=== PATIENT | male | born 1965 | race Hispanic/Latino ===

== ENCOUNTER 2020-09-27 09:59 | Emergency (ER) | payer OTHER ==
[~2020-09-27] VITALS: Ht 170.2 cm; Wt 72.7 kg
[~2020-09-27 09:59] MED LIST: AMOXICILLIN/CL875 MG PO; ANTI-FUNGAL12 TOP; AUGMENTIN875TAB OR; AUGMENTIN875TAB PO; FLONASE NASAL50 MCG; IBUPROFEN600 MG PO; KEFLEX500 M1 PO; OMEPRAZOLE20 MG PO; PENICILLN VK500 MG PO; POLYTRIM OS; TOBRAMYCIN0.3 % OS; TYLENOL # 31 TAB PO; ULTRAM50 MG OR; ZPAK PO
[2020-09-27] MEDS ORDERED: OMEPRAZOLE10 MG PO (10:15)
[2020-09-27] MEDS ORDERED: BACTRIM DS1 TAB PO (10:17)
[2020-09-27 10:19] VITALS: BP 148/89
== END 2020-09-27 10:25 | disposition home or self-care (01) ==
LOC: ED 09:59
DX: L03.012 Cellulitis of left finger (principal)

== ENCOUNTER 2023-05-30 14:53 | Emergency (ER) | payer OTHER ==
[~2023-05-30] VITALS: Ht 170.2 cm; Wt 75.0 kg
[~2023-05-30 14:53] MED LIST changes: +BACTRIM DS1 TAB PO; +OMEPRAZOLE10 MG PO
[2023-05-30 15:43] VITALS: BP 133/94
[2023-05-30 15:45] VITALS: BP 125/86
[2023-05-30 16:00] VITALS: BP 127/89
[2023-05-30 16:15] VITALS: BP 119/81
[2023-05-30 16:30] VITALS: BP 133/99
[2023-05-30 16:31] LABS: BASO% 0.5 % (0-3); EOS% 2.5 % (0-8); HEMATOCRIT 45.4 % (39.0-50.0); IMMATURE GRANULOCYTES 0.2 % (0.0-5.0); LYMPH% 24.1 % (15-41); MEAN CORPUSCULAR HGB 31.7 pG CALC (26.0-32.0); MONO% 8.7 % (2-13); NEUT# 8.08 thou/uL (1.82-7.42); RED BLOOD COUNT 4.73 mill/uL (4.70-6.10); RED CELL DISTRI WIDTH 13.1 % (11.5-15.5)
[2023-05-30 16:36] LABS: URINE BILIRUBIN - DIPSTICK Negative (NEGATIVE); URINE BLOOD DIPSTICK Large (NEGATIVE); URINE GLUCOSE - DIPSTICK Negative (NEGATIVE); URINE KETONE Negative (NEGATIVE); URINE LEUK ESTERASE Negative (NEGATIVE); URINE NITRITE - DIPSTICK Negative (Negative); URINE PH 6.5 (4.5-8.0); URINE PROTEIN - DIPSTICK Negative (NEG-TRACE); URINE SPECIFIC GRAVITY 1.015; URINE UROBILINOGEN - DIPSTICK 0.2 E.U./dL (0.2)
[2023-05-30 16:38] LABS: URINE COLOR Yellow
[2023-05-30 16:39] LABS: URINE WBC 0-2 WBC/hpf (0-5)
[2023-05-30 16:53] LABS: ALKALINE PHOSPHATASE 96 u/l (38-126); BUN 20 mg/dL (9-20); BUN/CREATININE RATIO 16 (12-20 (CALC)); CARBON DIOXIDE 25 mmol/l (22-30); CHLORIDE 107 mmol/l (95-108); CREATININE 1.3 mg/dL (0.7-1.3); GFR FOR AFR.AMER. > 60 ML/MIN (>=60 (CALC)); GFR OTHER RACES 57 ML/MIN (>=60 (CALC)); LIPASE 72 u/l (23-300); POTASSIUM 4.5 mmol/l (3.5-5.1); SGOT/AST 23 u/l (17-59); TOTAL PROTEIN 7.4 g/dL (6.3-8.2)
[2023-05-30 17:10] LABS: ANION GAP 9 (6-22 (CALC)); BILIRUBIN, TOTAL 0.6 mg/dL (0.2-1.3); SODIUM 136 mmol/l (137-146)
[2023-05-30] MEDS ORDERED: TORADOL PO (17:14)
[2023-05-30] MEDS ORDERED: TAMSULOSIN0.4 MG PO (17:14)
[2023-05-30 18:13] VITALS: BP 133/99
== END 2023-05-30 18:13 | disposition home or self-care (01) ==
LOC: ED 14:53
PROVIDERS: Nurse Practitioner
DX: N20.1 Calculus of ureter (principal); F17.200 Nicotine dependence, unspecified, uncomplicated; Z87.442 Personal history of urinary calculi